=== PATIENT | female | born 1975 | race Caucasian/White ===

== ENCOUNTER 2019-10-13 07:26 | Day surgery (SDC) | payer BC ==
[2019-10-07 12:11] LABS: Urine Appearance CLEAR; Urine Bilirubin NEGATIVE (NEG); Urine Blood NEGATIVE (NEG); Urine Color YELLOW; Urine Glucose NEGATIVE (NEG); Urine Protein NEGATIVE (NEG); Urine Specific Gravity 1.015 (1.005-1.030); Urine Urobilinogen 0.2 mg/dL (0.2-1.0); Urine pH 6.5 (5.0-7.0)
--- NOTE | 2019-10-07 12:12 | EKG ---
Test Date: 2019-10-07 Test Time: 11:43:10 Project Management Professional: JENNIFER MEASUREMENT RESULTS: Intervals: Rate: 66 CO: 144 QRSD: 80 QT: 384 QTc: 402 [place]: P: 36 CO: 144 QRS: 24 T: 40 INTERPRETIVE STATEMENTS: Normal sinus rhythm Cannot rule out Anterior infarct, age undetermined Abnormal ECG Compared to ECG 08/03/2014 14:52:53 Myocardial infarct finding now present Electronically Signed On 10-07-19 12:12:11 [employer]IP[employer] by Shahazd Saldana
[2019-10-07 12:22] LABS: Urine Microscopic Reflex ORDER UMIC
[2019-10-07 12:25] LABS: Absolute Lymphocytes (CBC) 1.4 K/uL (0.7-4.9); Basophils % 1.1 % (0-1.3); Hematocrit 38.1 % (36.0-45.0); Lymphocytes % 27.3 % (15.3-44.8); MPV 10.1 fL (7.6-11.3); RBC Red Blood Cell Count 3.93 M/uL (3.86-4.86)
[2019-10-07 12:29] LABS: Urine Bacteria <20 /HPF (<20); Urine Culture Reflex Order REFLEXED
--- OUTSIDE RECORDS SUMMARY | 2019-10-13 07:31 | XMS REPORT ---
:1975 [facility] [address] [place] [address] Care Team Providers Name Role Phone Unavailable Unavailable Unavailable Payers Payer Name Policy Type Policy Number Effective Date Expiration Date Problems This patient has no known problems. Allergies, Adverse Reactions, Alerts Allergy Name Allergy Status Severity Reaction(s) Onset Inactive Treating Comments Type Date Date Clinician naproxen DA Active SV 2013-04 sodium - 00:00:0 0 sumatriptan DA Active SV 2013-04 succinate 00:00:0 0 diclofenac DA Active SV 2013-04 potassium 00:00:0 0 adhesive DA Active MS 2013-04 00:00:0 0 banana DA Active SV 2013-04 00:00:0 0 Medications This patient has no known medications. Results Test Description Test Time Test Comments Text Results Atomic Results Result Comments - CT CHEST W/CONTRAST 2019-04-19 12:43:00 Name: GENI MORGAN [facility] Nikhil : 1975 Age/S: 43 / F [address] Unit #: [id number] Loc: [place] [address] Phys: Federico Aponte MD Acct: [id number] Dis Date: Status: ADM IN PHONE #: [phone] Exam Date: 04/19/2019 1018 FAX #: Reason: to r/o PE EXAMS: CPT: [id number] CT CHEST W/CONTRAST [address]352 CT CHEST WITH CONTRAST, PE PROTOCOL: Location code: B2 CLINICAL HISTORY: Shortness of breath , chest pain COMPARISON: None TECHNIQUE: Following the administration of a timed IV contrast bolus, helical CT of the chest was performed. Thin section axial, coronal, and sagittal images were obtained. Oblique sagittal maximum intensity reformatted images of the pulmonary arteries were also obtained. Automatic exposure control was utilized. Total DLP: 351 mGycm FINDINGS: Contrast bolus timing is suboptimal with poor opacification of the pulmonary arteries. There is no definite large or central PE within the main pulmonary arteries. Evaluation is otherwise limited. The aorta is of normal caliber and contour. The lungs are clear. There is no consolidation or effusion. The central airways are patent. There is no mediastinal adenopathy or mass. There is no pericardial effusion. Images through the upper abdomen are unremarkable. The bones, skin and surrounding soft tissues are unremarkable. IMPRESSION: 1. Limited evaluation for PE secondary to poor contrast bolus timing. There is no definite large or central PE. Correlation with VQ scan or repeat CT can be performed, if there is persistent clinical concern. 2. No acute intrathoracic abnormality. at 1243 Reported and signed by: John Zhang M.D. PAGE 1 Signed Report (CONTINUED) Name: GENI MORGAN [facility] : 1975 Age/S: 43 / F [address] [facility] [address] Unit #: [id number] Loc: [place] [address] Phys: Federico Apnote MD Acct: [id number] Dis Date: Status: ADM IN PHONE #: [phone] Exam Date: 04/19/2019 1018 FAX #: Reason: to r/o PE EXAMS: CPT: [id number] CT CHEST W/CONTRAST 19400 <Continued> CC: Kareem Deleon MD; Federico Aponte MD; Mehdi Hardin MD Technologist:RT Kathryn(R) CTDI: DLP: Trnscb Date/Time: 04/19/2019 (0693) [email or web address] Orig Print D/T: S: 04/19/2019 (6933) PAGE 2 Signed Report D-DIMER 2019-04-19 11:13:00 Test Item Value Reference Range Comments D-DIMER (test code=DDIMER) <215 ng/mLFEU 215-500 GLYCOSYLATED HEMOGLOBIN [id number] 09:51:00 Test Item Value Reference Range Comments GLYCOSYLATED HEMOGLOBIN (HA1C) (test 4.9 % A1C 4.2-6.3 code=GLYHGB) ESTIMATED AVERAGE GLUCOSE (test code=EAG) 94 MG/DLest HCG [id number] 09:33:00 Test Item Value Reference Range Comments HCG SERUM (test code=HCG) < 1 mi-IU/ML 0-6 0 - 6 NOT > 6 SUGGESTIVE OF EARLY RISES TWO FOLD EVERY 2 DAYS; SUGGEST RECONFIRMING AFTER 2 DAYS. 150,000-200,[address] TRIMESTER 10,000 - 50,000 2ND & 3RD TRIMESTER COMPREHENSIVE METABOLIC [id number] 09:28:00 Test Item Value Reference Range Comments SODIUM (test code=NA) 139 mmol/L 134-147 POTASSIUM (test code=K) 4.1 mmol/L 3.4-5.0 CHLORIDE (test code=CL) 104 mmol/L 100-108 CARBON DIOXIDE (test code=CO2) 31 mmol/L 21-32 ANION GAP (test code=GAP) 4.0 GAP calc 4.0-15.0 GLUCOSE (test code=GLU) 82 MG/DL 70-110 BLOOD UREA NITROGEN (test code=BUN) 9 MG/DL 7-18 GLOMERULAR FILTRATION RATE (test >=60 max estimate estGFR >60 code=GFR) CREATININE (test code=CREAT) 0.8 MG/DL 0.6-1.0 TOTAL PROTEIN (test code=PROT) 6.7 G/DL 6.4-8.2 ALBUMIN (test code=ALB) 3.9 G/DL 3.4-5.0 GLOBULIN (test code=GLOB) 2.8 GM/dL ALBUMIN/GLOBULIN RATIO (test 1.4 RATIO 1.2-2.2 code=A/G) CALCIUM (test code=CA) 8.8 MG/DL 8.5-10.1 BILIRUBIN TOTAL (test code=BILT) 0.30 MG/DL 0.2-1.2 SGOT/AST (test code=AST) 19 Unit/L 15-37 SGPT/ALT (test code=ALT) 26 Unit/L 12-78 ALKALINE PHOSPHATASE TOTAL (test 59 Unit/L 45-117 code=ALKP) LIPID PROFILE (CORONARY RISK)2019-04-19 09:28:00 Test Item Value Reference Range Comments TRIGLYCERIDES (test code=TRIG) 89 MG/DL 0-150 CHOLESTEROL (test code=CHOL) 158 MG/DL 133-200 CHOLESTEROL/HDL RATIO (test code=CHOLHDL) 2.59 RATIO >0 HDL CHOLESTEROL (test code=HDL) 61 MG/DL 40-59 NON-HDL CHOLESTEROL (test code=NHDL) 97 mg/dL <130 LIPOPROTEIN LDL (test code=LDL) 91 MG/DL 0-129 LDL/HDL (test code=LDL/HDL) 1.49 Ratio 1.48-3.22 Avg [id number] 09:28:00 Test Item Value Reference Range Comments PHOSPHOROUS (test code=PHOS) 3.8 MG/DL 2.5-4.9 RULE OUT MS [id number] 09:28:00 Test Item Value Reference Range Comments CREATINE KINASE (CK) 80 Unit/L 26-192 (test code=CK) TROPONIN-I (test < 0.015 NG/ML 0.000-0.045 Negative: </=0.045 Positive: code=TROPI) >/=0.046 Correlation with serial results, other cardiac markers, and clinical findings is necessary to determine the clinical significance of this result. Quantitative results using different methodologies should not be compared to one another as numerical results may varyby method. [id number] 09:28:00 Test Item Value Reference Range Comments MAGNESIUM (test code=MAG) 1.9 MG/DL 1.8-2.4 PROTHROMBIN [id number] 09:15:00 Test Item Value Reference Range Comments PT PATIENT (test code=PTP) 11.5 SECONDS 9.3-12.9 INTERNATIONAL NORMAL RATIO (test code=INR) 1.00 INR Unit 0.8-1.2 CBC W/AUTO [id number] 09:07:00 Test Item Value Reference Range Comments WHITE BLOOD CELL (test code=WBC) 5.2 K/mm3 3.5-11.0 RED BLOOD CELL (test code=RBC) 4.15 M/mm3 4.70-6.10 HEMOGLOBIN (test code=HGB) 13.0 G/DL 10.4-14.9 HEMATOCRIT (test code=HCT) 39.4 % 31.5-44.1 MEAN CELL VOLUME (test code=MCV) 94.9 Fl 84.5-98.6 MEAN CELL HGB (test code=MCH) 31.3 pg 27.0-34.2 MEAN CELL HGB CONCETRATION (test code=MCHC) 33.0 G/DL 31.5-34.0 RED CELL DISTRIBUTION WIDTH (test code=RDW) 13.1 SD 11.5-14.5 PLATELET COUNT (test code=PLT) 201.0 K/mm3 150-450 MEAN PLATELET VOLUME (test code=MPV) 11.40 fL 7.0-10.5 NEUTROPHIL % (test code=NT%) 56.7 % 40-76 LYMPHOCYTE % (test code=LY%) 26.5 % 20.5-51.1 MONOCYTE % (test code=MO%) 10.6 % 1.7-9.3 EOSINOPHIL % (test code=EO%) 5.8 % 0.0-6.0 BASOPHIL % (test code=BA%) 0.4 % 0.0-2.0 NEUTROPHIL # (test code=NT#) 2.93 K/mm3 1.8-7.6 LYMPHOCYTE # (test code=LY#) 1.4 K/mm3 0.6-3.2 MONOCYTE # (test code=MO#) 0.6 K/mm3 0.3-1.1 EOSINOPHIL # (test code=EO#) 0.3 K/mm3 0.0-0.4 BASOPHIL # (test code=BA#) 0.0 K/mm3 0.0-0.1 MANUAL DIFF REQUIRED (test code=MDIFF) NO DIFF/SCN CRITERIA [id number] 03:59:00 Test Item Value Reference Range Comments TROPONIN-I (test < 0.015 NG/ML 0.000-0.045 Negative: </=0.045 Positive: code=TROPI) >/=0.046 Correlation with serial results, other cardiac markers, and clinical findings is necessary to determine the clinical significance of this result. Quantitative results using different methodologies should not be compared to one another as numerical results may varyby method. Completed by Nursing: [id number] 01:28:00 Test Item Value Reference Range Comments TROPONIN-I (test < 0.015 NG/ML 0.000-0.045 Negative: </=0.045 Positive: code=TROPI) >/=0.046 Correlation with serial results, other cardiac markers, and clinical findings is necessary to determine the clinical significance of this result. Quantitative results using different methodologies should not be compared to one another as numerical results may varyby method. Completed by Nursing: NO- MRI L-SPINE W/O [id number] 18:51:00 Patient Name: GENI MORGAN Unit No: [id number] EXAMS: CPT CODE: [id number] MRI L-SPINE W/O CONT 90651 MRI OF THE LUMBAR SPINE: DIAGNOSIS: 1. At L1-2, there is no disc bulge or herniation. No central canal or foraminal stenosis. 2. At L2-3, no disc bulge or herniation. No central canal or foraminal stenosis. 3. At L3-4, no disc bulge or herniation. No central canal or foraminal stenosis. 4. At L4-5, there is no disc bulge or herniation. Mild central canal stenosis. Mild to moderate bilateral facet arthropathy. Mild left foraminal stenosis. 5. At L5-S1, disc bulge or herniation. No central canal stenosis. Mild bilateral facet arthropathy. No foraminal stenosis COMMENT: COMPARISON: The current exam is compared to a previous exam dated February 20, 2011. Sagittal T1, T2 and STIR and axial T1 and T2-weighted sequences are obtained of the lumbar spine. The lumbar vertebrae are within normal limits in signal. The findings are as above. The conus is in the expected location. at 1851 Reported and signed by: Anali Isaac MD CC: Asha Redman MD Technologist: Kaelyn Kessler, RT(R) Transcribed D/ (1850) MartínezGVG [facility] NAME: GENI MORGAN [address] [facility] PHYS: Asha Belle MD : 1975 AGE: 43 SEX: F [place], [place] [address] LOC: Y.MRI PHONE #: [phone] EXAM DATE: 03/06/2019 STATUS: DEP CLI FAX #: [phone] RAD #: D/C DT PAGE 1 Signed Report Patient Name: MIHAELA MORGAN Unit No: [id number] EXAMS: CPT CODE: [id number] MRI L-SPINE W/O CONT 58720 <Continued> Orig Print D/T: S: 03/08/2019 (1855) [facility] NAME: GENI MORGAN [address] [facility] [address] PHYS: Asha Belle MD : 1975 AGE: 43 SEX: F [place], [place] [address] LOC: Y.MRI PHONE #: EXAM DATE: 03/06/2019 STATUS: JESSICA CLI FAX #: [phone] RAD #: D/C DT PAGE 2 Signed Report
[2019-10-13] MEDS ORDERED: SCOPOLAMINE HYDROBROMIDE PATCH TD ONE (07:42)
[2019-10-13] MEDS ORDERED: Ringers Lactate 1,000 ML IV ONE (07:42)
[2019-10-13] MEDS ORDERED: MIDAZOLAM HCL 2 MG/2 ML INJ ONE (07:58)
[2019-10-13] MEDS ORDERED: GLYCOPYRROLATE 0.2 MG/ML SYR ONE (07:58)
[2019-10-13] MEDS ORDERED: dexAMETHasone 10 MG/ML VIAL ONE (07:58)
[2019-10-13] MEDS ORDERED: LIDOCAINE 2% MPF 5 ML VIAL ONE (07:58)
[2019-10-13] MEDS ORDERED: FENTANYL CITR 250 MCG/5 ML ONE (07:58)
[2019-10-13] MEDS ORDERED: propofoL 200 MG/20 ML VIAL IV ONE (07:58)
[2019-10-13] MEDS ORDERED: ONDANSETRON 4 MG/2 ML VIAL ONE (07:59)
[2019-10-13] MEDS ORDERED: ROCURONIUM 50 MG/5 ML VIAL IV ONE (07:59)
[2019-10-13] MEDS ORDERED: BUPIVACAINE 0.25% PF 30 ML VIAL ONE (08:13)
[2019-10-13] MEDS ORDERED: KETOROLAC 30 MG/ML INJ ONE (09:42)
[2019-10-13] MEDS: HYDROMORPHONE HCL 1 MG/ML INJ ONE ×2 (10:35→10:40)
[2019-10-13] MEDS ORDERED: HYDROCODONE/APAP 5/325 MG TAB ONE (12:05)
[2019-10-13 13:27] VITALS: BP 107/71; TEMP 98.5; O2SAT 99
--- NOTE | 2019-10-13 20:02 | OP ---
Date of Procedure: 10/13/2019 Surgeon: Gabriela Isaac MD Preoperative Diagnoses: Menorrhagia (AUB: A/E); known history of endometriosis of the pelvic, perit oneum; pelvic pain. Postoperative Diagnoses: Menorrhagia (AUB: A/E); known history of endometriosis of the pelvic, griffin toneum; pelvic pain. Procedures Performed: 1.Hysteroscopy, dilatation and curettage. 2.Laparoscopy. 3.Bilateral salpingectomy. Anesthesia: General endotracheal. Specimens: Endometrial curettings. Bilateral tubes. Complications: No complications. Drains: No drains. Condition: Stable. Indications: Patient is a 44-year-old with pelvic pain and heavy menstrual bleeding. She had severe pain which was suspectful of endometritis and PID for which she was treated with antibiotics, still without any resolution of her pain. Patient with history of endometriosis and endometriosis excision 10 years ago, did well after that, but progressively pain has worsened. On examination, her adnexa right more tended on the left on the uterosacral, but no scar tissue was palpable. No adnexal masses were palpable. Transvaginal ultrasound was performed. No adnexal masses were found. Endometrium was slightly thick ened, but no intracavitary mass was suspected. She is status post tubal ligation and she is 44. She also has other comorbid conditions including rheumatoid arthritis, fibromyalgia. She had recent car diac workup that was negative. One vaginal delivery in the past. We discussed about options of conservative management with depot medroxyprogesterone or an IUD after endometrial sampling versus hysteroscopy, laparoscopy, endometriosis seem to be treated as well as bi lateral salpingectomy. If this failed, then it would warrant doing much more significant procedure l dominick a hysterectomy and once the patient was consented, she was explained all the alternatives to be p roceeded with the laparoscopy. She was brought to the hospital after re-consenting. Description Of Operation: In the preop, she was taken back to OR, placed in supine fashion. General anesthesia given, placed in a dorsal lithotomy position. Arms were tucked by the side. SCDs starte d. Time-out done. Pelvic exam, anteflexed uterus about 6-8 weeks, mobile. No adnexal masses were p alpable. Uterosacrals, no nodularity palpable and cul-de-sac free. Abdomen, vulva, vagina, and perineum prepped and draped in a sterile fashion. Richter was placed to dr alvarenga the bladder. Speculum was placed to expose the cervix. Anterior lip was grasped with 2 Allis cl amps. Diagnostic SlimLine hysteroscope was used to enter the cervical canal. Uterine cavity was ent ered. No intracavitary lesions were seen. Endometrial curettings were performed after the scope was removed and handed off for permanent pathology and a diagnostic uterine manipulator was introduced i nto the uterus and fixed in place. This area was then drained and the Richter was hooked up to the miroslava inage bag and this area was draped. A 1 cm infraumbilical incision was made after injecting Marcaine . Then, incision was opened up. Fascia was opened up with a knife, tagged with 0 Vicryl sutures. P eritoneum entered bluntly, S retractors placed. Osbaldo was introduced. Site of entry was checked an d was unremarkable. Upper abdominal surface was unremarkable as well. Patient was placed in Trendel enburg position and inspection of the pelvic cavity carefully was performed after placing the 5 supra pubic and left lower quadrant ports after Marcaine was injected in those respective sites as well. Both tubes had hydropic change. The right tube was adhered to the right pelvic sidewall. Evidence o f old endometriosis excision was present and pelvic peritoneum healed up very nicely. No endometrios is visible that could be excised including in the cul-de-sac. Slightly behind the left uterosacral, there was an area of scar, but no window was seen. Anteriorly, in the pelvic peritoneum, there appea red to be old endometriosis excision scar, but no new was seen. Carefully, after all the tubes and o varies were inspected in the broad ligament, deemed to remove the tubes. The proximal part of the le ft tube was not present, so distal part of the left tube taken down with the LigaSure. The proximal and distal parts of the right tube were taken down with the LigaSure, handed out for permanent pathol ogy, retrieved through the umbilical port using a 5 camera to the left. Ports were removed and were injected and trocar removed. Fascia closed with 0 Vicryl in a [id number]-hb-oyvyr fashion. All incision s were closed with interrupted 4-0 Vicryl sutures. The uterine manipulator and Richter were all remove d. Instrument, needle, and sponge counts were correct and patient tolerated the procedure well and e xtubated in the OR and taken to the PACU in stable condition. OSIRIS/VOLODYMYR Voice ID: [id number] Report ID: [id number]
== END 2019-10-13 12:55 | disposition home or self-care (01) ==
LOC: OR 07:26
PROVIDERS: ATTEND Obstetrics & Gynecology
PROC: 0UJD8ZZ Inspection of Uterus and Cervix, Via Natural or Artificial Opening Endoscopic (ICD-10-PCS; 2019-10-13)
PROC: 0UT74ZZ Resection of Bilateral Fallopian Tubes, Percutaneous Endoscopic Approach (ICD-10-PCS; 2019-10-13)
PROC: 0UDB7ZX Extraction of Endometrium, Via Natural or Artificial Opening, Diagnostic (ICD-10-PCS; principal; 2019-10-13 08:30)
DX: N92.1 Excessive and frequent menstruation with irregular cycle (principal); R10.2 Pelvic and perineal pain; N83.8 Other noninflammatory disorders of ovary, fallopian tube and broad ligament; M06.9 Rheumatoid arthritis, unspecified; M79.7 Fibromyalgia; K31.84 Gastroparesis; F32.9 Major depressive disorder, single episode, unspecified; E66.9 Obesity, unspecified; Z68.37 Body mass index [BMI] 37.0-37.9, adult; Z91.040 Latex allergy status; Z88.8 Allergy status to other drugs, medicaments and biological substances; Z90.49 Acquired absence of other specified parts of digestive tract; Z80.3 Family history of malignant neoplasm of breast; Z82.3 Family history of stroke
CPT/HCPCS: 93005; 87088; 85025; 87086; 36415; 86900; 86850; 81025; 86901; 88302; 88305; 58558; 58661; J2704; J2250; J3010; J1100; J1170; J7120; J2405; 81003; 81015

== ENCOUNTER 2020-03-15 08:50 | Day surgery (SDC) | payer BC ==
[2020-03-14 09:42] LABS: Urine Appearance CLEAR; Urine Bilirubin NEGATIVE (NEG); Urine Blood NEGATIVE (NEG); Urine Color YELLOW; Urine Glucose NEGATIVE (NEG); Urine Microscopic Reflex NO UMIC; Urine Protein NEGATIVE (NEG); Urine Specific Gravity <=1.005 (1.005-1.030); Urine Urobilinogen 0.2 mg/dL (0.2-1.0)
[2020-03-14 09:45] LABS: Absolute Lymphocytes (CBC) 1.3 K/uL (0.7-4.9); Basophils % 0.6 % (0-1.3); Hematocrit 38.9 % (36.0-45.0); Lymphocytes % 35.9 % (15.3-44.8); MPV 10.1 fL (7.6-11.3); RBC Red Blood Cell Count 4.01 M/uL (3.86-4.86)
--- OUTSIDE RECORDS SUMMARY | 2020-03-15 09:28 | XMS REPORT | Continuity of Care Document ---
:1975 Author Organization [facility] Information [place] Care Team Providers Name Role Phone [facility] [place] Unavailable Un available Problems Problem Status Onset Classification Date Comments Sourc e Date Reported SYMPTOMATIC Active [facility] BRADYCARDIA 6 Noah BRADYCARDIA, Active Memoria l UNSPECIFIED Noah Medications Medication Details Route Status Patient Ordering Order Source Instructions Provider Date Naproxen Notes: No Longer MH (Same as: Active 016 [place] Naprosyn) Take with food. D5W 1/2NS 1,000 1,000 mL, No Longer MH mL Rate: 75 Active 016 [place] ml/hr, Infuse over: 13.3 hr, Route: IV, Dosing Weight 89.545 kg, Total Volume: 1,000, Start date: 10/16/16 12:25:00 [employer], Duration: 30 day, Stop date: 11/15/16 12:24:00 [employer] Celebrex Notes: No Longer MH NSAID. Active 016 [place] Please check indication . Not for seizure. (Same As: CeleBREX) Lamictal Notes: No Longer MH (Same Active 016 [place] as:LaMICta l) Topamax Notes: No Longer MH (Same As: Active 016 [place] Topamax) "Do Not Crush" predniSONE 5 mg 100.4 F, Active MH oral tablet Give with 016 [place] food., # 7 tab, 0 Refill(s) celecoxib 200 200 mg = 1 Active MH MG Oral Capsule cap, PO, 016 [place] [Celebrex] Daily, # 30 cap, 0 Refill(s) Vitamin D3 PO, 0 Active MH Refill(s) 016 [place] topiramate 50 50 mg = 1 Active MH MG Oral Tablet tab, PO, 016 [place] [Topamax] Bedtime, # 60 tab, 0 Refill(s) Actemra 20 800, IV, Active mg/mL q4wk, 0 016 [place] intravenous Refill(s) solution lamotrigine 100 100 mg = 1 Active MG Oral Tablet tab, PO, 016 [place] [Lamictal] Daily, # 30 tab, 1 Refill(s) Fioricet PO, Q4H, 0 Active Refill(s) 016 [place] Trazodone 50 mg, PO, Active Bedtime, 0 016 [place] Refill(s) Methotrexate See Active Instructio 016 [place] ns, 7.5 mg qam and qpm only on saturdays, 0 Refill(s) Allergies, Adverse Reactions, Alerts Substance Category Reaction Severity Reaction Status Date Comments S ource type Reported [place] Assertion Drug Active MH allergy [place] Treximet Assertion Drug Active MH allergy [place] Immunizations No Data Provided for This Section Results Order Name Results Value Reference Date Interpretation Comments Seda rce Range CHEM PANEL eGFR 100 10/17 Result Comment: The [place] eGFR is calculated using the CKD-EPI formula. In most young, healthy individuals the eGFR will be >90 mL/min/1.73m2 . The eGFR declines with age. An eGFR of 60-89 may be normal in some populations, particularly the elderly, for whom the CKD-EPI formula has not been extensively validated. Use of the eGFR is not recommended in the following populations:< br/>
Kyung viduals with unstable creatinine concentration s, including patients and those with serious co-morbid conditions.<b r/>
Patie nts with extremes in muscle mass or diet.

The data above are obtained from the National Kidney Disease Education Program (NKDEP) which additionally recommends that when the eGFR is used in patients with extremes of body mass index for purposes of drug dosing, the eGFR should be multiplied by the estimated BMI. CHEM PANEL B/C Ratio 12 6 - 25 10/17 [place] CHEM PANEL Globulin 2.5 2.7 - 4.2 10/17 [place] CHEM PANEL A/G Ratio 1.6 0.7 - 1.6 10/17 [place] CHEM PANEL Calcium Lvl 8.0 8.5 - 10.5 10/17 [place] CHEM PANEL Potassium Lvl 4.3 3.5 - 5.1 10/17 [place] CHEM PANEL Chloride Lvl 110 95 - 109 10/17 [place] CHEM PANEL ASPARTATE 22 0 - 37 10/17 [place] CHEM PANEL AGAP 14.3 10.0 - 10/17 MH 20.0 /2016 [place] CHEM PANEL Total Protein 6.4 6.4 - 8.4 10/17 [place] CHEM PANEL Bili Total 0.6 0.2 - 1.3 10/17 [place] CHEM PANEL CO2 24 24 - 32 10/17 [place] CHEM PANEL Albumin Lvl 3.9 3.5 - 5.0 10/17 [place] CHEM PANEL ALANINE 39 0 - 65 10/17 [facility] CHEM PANEL BUN 9 7 - 22 10/17 [place] CHEM PANEL Creatinine Lvl 0.74 0.50 - 10/17 MH 1.40 [place] CHEM PANEL Alk Phos 63 39 - 136 10/17 [place] CHEM PANEL Glucose Lvl 114 70 - 99 10/17 [place] CHEM PANEL Sodium Lvl 144 135 - 145 10/17 [place] CHEM PANEL Phosphorus 2.9 2.5 - 4.5 10/16 [place] CHEM PANEL Magnesium Lvl 1.8 1.8 - 2.4 10/16 [place] CARDIAC Troponin-I <0.02 0.00 - 10/15 ENZYMES 0. [place] CHEM PANEL eGFR 94 10/15 [facility] Comment: The [place] eGFR is calculated using the CKD-EPI formula. In most young, healthy individuals the eGFR will be >90 mL/min/1.73m2 . The eGFR declines with age. An eGFR of 60-89 may be normal in some populations, particularly the elderly, for whom the CKD-EPI formula has not been extensively validated. Use of the eGFR is not recommended in the following populations:< br/>
Kyung viduals with unstable creatinine concentration s, including patients and those with serious co-morbid conditions.<b r/>
Patie nts with extremes in muscle mass or diet.

The data above are obtained from the National Kidney Disease Education Program (NKDEP) which additionally recommends that when the eGFR is used in patients with extremes of body mass index for purposes of drug dosing, the eGFR should be multiplied by the estimated BMI. CHEM PANEL Glucose Lvl 89 70 - 99 10/15 [place] CHEM PANEL Alk Phos 60 39 - 136 10/15 [place] CHEM PANEL Albumin Lvl 3.9 3.5 - 5.0 10/15 [place] CHEM PANEL ASPARTATE 17 0 - 37 12/ MH [place] CHEM PANEL Total Protein 6.7 6.4 - 8.4 10/15 [place] CHEM PANEL Bili Total 0.8 0.2 - 1.3 10/15 [place] CHEM PANEL Calcium Lvl 8.8 8.5 - 10.5 10/15 [place] CHEM PANEL CO2 30 24 - 32 10/15 [place] CHEM PANEL Chloride Lvl 110 95 - 109 10/15 [place] CHEM PANEL Creatinine Lvl 0.78 0.50 - 10/15 MH 1.40 /2015 [place] CHEM PANEL BUN 9 7 - 22 10/15 [place] CHEM PANEL ALANINE 30 0 - 65 10/15 [facility] CHEM PANEL Potassium Lvl 4.2 3.5 - 5.1 10/15 [place] CHEM PANEL Sodium Lvl 143 135 - 145 10/15 [place] CHEM PANEL A/G Ratio 1.4 0.7 - 1.6 10/15 [place] CHEM PANEL Globulin 2.8 2.7 - 4.2 10/15 [place] CHEM PANEL AGAP 7.2 10.0 - 12/ MH 20.0 [place] CHEM PANEL B/C Ratio 12 6 - 25 10/15 [place] HEMATOLOGY Monocytes # 0.4 0.0 - 0.8 10/15 [place] HEMATOLOGY Eosinophils 0.4 0.0 - 4.0 10/15 [place] HEMATOLOGY Basophils 0.6 0.0 - 1.0 10/15 [place] HEMATOLOGY Segs-Bands # 5.1 1.5 - 8.1 10/15 [place] HEMATOLOGY Lymphocytes # 1.5 1.0 - 5.5 10/152015 [place] HEMATOLOGY Segs 71.8 45.0 - 12/ MH 75.0 /2016 [place] HEMATOLOGY Monocytes 6.0 2.0 - 12.0 12/ /2015 [place] HEMATOLOGY Lymphocytes 21.2 20.0 - 12/ MH 40.0 /2015 [place] HEMATOLOGY MPV 9.8 7.4 - 10.4 12 /2015 [place] HEMATOLOGY Platelet 206 133 - 450 12/ /2015 [place] HEMATOLOGY MCHC 33.7 32.0 - 12/ MH 36.0 /2015 [place] HEMATOLOGY RDW 15.0 11.5 - 12/ MH 14. /2015 [place] HEMATOLOGY WBC X 10x3 7.1 3.7 - 10.4 12 /2015 [place] HEMATOLOGY MCH 32.1 27.0 - 12 MH 31.0 [place] HEMATOLOGY MCV 95.3 80.0 - 10/15 MH 98.0 /2015 [place] HEMATOLOGY Hct 36.6 36.0 - 10/15 MH 48.0 [place] HEMATOLOGY RBC X 10x6 3.84 4.20 - 10/15 MH 5.40 [place] HEMATOLOGY Hgb 12.3 12.0 - 10/15 MH 16.0 [place] Pathology Reports No Data Provided for This Section Diagnostic Reports No Data Provided for This Section Consultation Notes No Data Provided for This Section Discharge Summaries No Data Provided for This Section History and Physicals No Data Provided for This Section Vital Signs Vital Sign Value Date Comments Source Systolic (mm Hg) 131 10/17/2016 [facility] Diastolic (mm Hg) 85 10/17/2016 [place] Heart Rate 48 10/17/2016 [facility] Temperature Oral (F) 98 F 10/17/2016 [place] Respitory Rate 18 10/17/2016 [place] Respitory Rate 18 10/17/2016 [place] Systolic (mm Hg) 139 10/17/2016 [place] Diastolic (mm Hg) 90 10/17/2016 [place] Heart Rate 47 10/17/2016 [facility] Temperature Oral (F) 98.5 F 10/17/2016 [place] Systolic (mm Hg) 154 10/17/2016 [place] Diastolic (mm Hg) 95 10/17/2016 [place] Respitory Rate 18 10/17/2016 [facility] Heart Rate 48 10/17/2016 [facility] Temperature Oral (F) 98.2 F 10/17/2016 [facility] Weight 89.545 10/15/2016 [facility] BMI Calculated 32.85 10/15/2016 [facility] Height 165.1 cm 10/15/2016 [facility] Encounters Location Location Encounter Encounter Reason Attending ADM DC Stat us Source Details Type Number For Provider Date Date Visit [facility] [id number] Jenna 10/15 10/17 Gilead Ajao /2015 [facility] Procedures Procedure Code Date Perfomer Comments Source Appendectomy [id number] 11/04/2007 [facility] Cholecystectomy [id number] 11/04/2000 [facility] nd Tubal ligation [id number] 11/04/2000 [facility] d Carpal tunnel release [id number] [facility] Assessment and Plan Assessment and Plan Date Source Extracted from:Title: [facility] Cardiology Note 1 12/18/2015 [facility] Author: Joe Reid MD Date: 10/17/16 Impression and Plan The patient was seen and examined by me with the resident/COMMUNICATIONS PROJECT LEAD/PA and I agree with the History/Exam documented. 1. Sinus bradycardia 2. Rheumatoid arthritis 3. Bipolar disorder 4. Insomnia 5. Dizziness and lightheadedness RECOMMENDATIONS: - Evaluation so far has been unrevealing . Her medication do not appear to cause bradycardia however all can lead to dizziness and lightheadedness. - Tele with sinus bk only - Echocardiogram is normal - Exercise treadmill stress test showed normal chronotropic compentence. Plan for outpt event monitor and sleep study eval to rule ou t MOJGAN. Otherwise OK for d/c home from CV standpoint. Thank you. Extracted from:Title: General Admission H&P * Author: Bobby Felix MD Date: 10/15/16 Impression and Plan 1. symptomatic bradycardia 2. rheumatoid arthritis 3. bipolar 4. seizure disorder admit to telemetry will hold trazadone bernarda, monitor closely Dr Tatum cardiology following Echo orderd c/w lamictal, tpoamax venodynes while in bed Plan of Care No Data Provided for This Section Social History Social History Date Source Social History TypeResponse 10/15/2016 [facility] Smoking Status Never smoker; Ready to change: No; Expos ure to Tobacco Smoke None; Cigarette Smoking Last 365 Days No; Reg Smoking Cessation Counseling No Family History No Data Provided for This Section Advance Directives No Data Provided for This Section Functional Status No Data Provided for This Section
--- OUTSIDE RECORDS SUMMARY | 2020-03-15 09:30 | XMS REPORT | Summary of Care ---
:1975 Author Organization [facility] Address [address] [place] [address] Care Team Providers Name Role Phone Pcp, Does Not Have A Primary Care Provider Reason for Visit Reason Comments Follow-up 8mo Ekg Done today in Office Encounter Details Date Type Department Care Team Description 12/29/2019 Office Visit [facility] Rio Johnson M D Dizziness and Cardiology- [address] ([address]) Drive, [address] [place], [place] [phone] Allergies Active Allergy Reactions Severity Noted Date Comments Diclofenac Potassium Anaphylaxis 01/06/2015 Sumatriptan-Naproxen Anaphylaxis 01/06/2015 documented as of this encounter (statuses as of 01/10/2020) Medications Medication Sig Dispensed Refills Start End Date Status Date escitalopram oxalate Take 20 mg 0 Active (LEXAPRO) 20 mg tablet by mouth daily. traZODONE (DESYREL) 50 Take 50 mg 0 Active mg tablet by mouth at bedtime. lamoTRIgine (LAMICTAL) Take 100 mg 0 Active 100 mg tablet by mouth 2 (two) times daily. methotrexate Take 7.5 mg 0 Activ e (RHEUMATREX) 2.5 mg by mouth tablet weekly. predniSONE (DELTASONE) Take 5 mg 0 Active 5 mg tablet by mouth as needed. Omeprazole-Sodium Take by 0 Ac tive Bicarbonate (ZEGERID) mouth 2 40-1,680 mg Pack (two) times daily. venlafaxine XR (EFFEXOR Take 75 mg 0 Active XR) 75 mg 24 hr capsule by mouth daily with breakfast. meloxicam (MOBIC) 15 mg Take 15 mg 0 Active tablet by mouth daily. hydroxychloroquine Take 200 mg 0 Active (PLAQUENIL) 200 mg by mouth tablet daily. PNV Take by 0 Active [id number] mouth. A ORAL L-Methylfolate (DEPLIN) Take by 0 Discontinued 15 mg Tab mouth 20 (Therapy daily. completed) CHOLECALCIFEROL, Take by 0 12/29/19 Dis continued VITAMIN D3, (VITAMIN D3 mouth. 20 (Therapy ORAL) completed) topiramate (TOPAMAX) 25 Take 25 mg 0 12/29 Discontinued mg tablet by mouth at 20 (Therapy bedtime. completed) Etanercept (ENBREL inject 0 12/29/19 D iscontinued SURECLICK) 50 mg/mL under the 20 (Therapy (0.98 mL) PnIj skin compl eted) weekly. BUTALB/ACETAMINOPHEN/CA Take by 0 Discontinued FFEINE (FIORICET ORAL) mouth as 20 (Therapy needed. completed) LACTOBAC CMB Take by 0 12/29/19 Discont inued #3/FOS/PANTETHINE mouth 20 (T herapy (PROBIOTIC & daily. complet ed) ACIDOPHILUS ORAL) levothyroxine Take 1 30 Tab 2 12/29/19 Discon tinued (SYNTHROID) 50 mcg tablet, in 5 20 (Error) tablet the morning, on empty stomach, 1 hour before breakfast. documented as of this encounter (statuses as of 01/10/2020) Active Problems Not on filedocumented as of this encounter (statuses as of 01/10/2020) Social History Tobacco Use Types Packs/Day Years Used Date Never Smoker Smokeless Tobacco: Never Used Alcohol Use Drinks/Week oz/Week Comments Not Asked Sex Assigned at Date Recorded Not on file Job Start Date Occupation Industry Not on file Not on file Not on file Travel History Travel Start Travel End No recent travel history available. documented as of this encounter Last Filed Vital Signs Vital Sign Reading Time Taken Comments Blood Pressure 167/97 12/29/2019 2:16 PM [employer] Pulse 72 12/29/2019 2:16 PM [employer] Temperature - - Respiratory Rate 20 12/29/2019 2:06 PM [employer] Oxygen Saturation 100% 12/29/2019 2:06 PM [employer] Inhaled Oxygen Concentration - - Weight 94.2 kg (207 lb 11.2 oz) 12/29/2019 2:06 PM [employer] Height 162.6 cm (5' 4") 12/29/2019 2:06 PM [employer] Body Mass Index 35.65 12/29/2019 2:06 PM [employer] documented in this encounter Progress Notes Rio Johnson MD - 12/29/2019 2:00 PM CST [facility] Cardiology Consult Note CHIEF COMPLAINT: Chief Complaint Patient presents with Follow-up 8mo Ekg Done today in Office History of Present Illness: Dorinda Holley is a 44 years old female presents to clinic for evaluation for dizziness. History obtained talking to patient herself. For the past 1-2 Months, when getting up, she feels heart beating hard and fast, lasting 1 min, associated with LH, off balance, Nausea, etc. BP is normal. Drinks a lot of water. Lost 10 lbs. Mild headache and blurry vision. EKG--reviewed by me--12/29/2019--sinus rhythm HR 59 bpm, Non specific T wave abnormality Risk factors: autoimmune disorder, fibromyalgia, gastroparesis, esophageal dilatation. Outside records:- [facility] Tejeda cardio note reviewed. Seen by Dr Dolan Echo shows preserved LV EF. No valve issues. (04.18.2019) Recommended outpatient stress test. Previous Cardiac Studies: IMAGING - I personally reviewed, pertinent results as below: ECG Reviewed from outside; SR with narrow QRS complex. No sig ST T changes. PAST MEDICAL HISTORY Past Medical History: Diagnosis Date Fibromyalgia Rheumatoid arthritis(714.0) Seizure disorder Past Surgical History: Procedure Laterality Date FOOT/TOES SURGERY PROC UNLISTED Fractures twice Family History Problem Relation Age of Onset Other - see comments NoFHx She does not know bilogical realtives history well SOCIAL HISTORY Social History Socioeconomic History Marital status: Spouse name: Not on file Number of children: Not on file Years of education: Not on file Highest education level: Not on file Occupational History Not on file Social Needs Financial resource strain: Not on file Food insecurity: Worry: Not on file Inability: Not on file Transportation needs: Medical: Not on file Non-medical: Not on file Tobacco Use Smoking status: Never Smoker Smokeless tobacco: Never Used Substance and Sexual Activity Alcohol use: Not on file Drug use: Not on file Sexual activity: Not on file Lifestyle Physical activity: Days per week: Not on file Minutes per session: Not on file Stress: Not on file Relationships Social connections: Talks on phone: Not on file Gets together: Not on file Attends scientologist service: Not on file Active member of club or organization: Not on file Attends meetings of clubs or organizations: Not on file Relationship status: Not on file Intimate partner violence: Fear of current or ex partner: Not on file Emotionally abused: Not on file Physically abused: Not on file Forced sexual activity: Not on file Other Topics Concern Not on file Social History Narrative Not on file ALLERGIES Allergies Allergen Reactions [place] [Diclofenac Potassium] Anaphylaxis Treximet [Sumatriptan-Naproxen] Anaphylaxis MEDICATIONS Patient's Medications START taking these medications No medications on file CONTINUE taking these medications which have NOT CHANGED ESCITALOPRAM OXALATE (LEXAPRO) 20 MG TABLET Take 20 mg by mouth daily. HYDROXYCHLOROQUINE (PLAQUENIL) 200 MG TABLET Take 200 mg by mouth daily. LAMOTRIGINE (LAMICTAL) 100 MG TABLET Take 100 mg by mouth 2 (two) times daily. MELOXICAM (MOBIC) 15 MG TABLET Take 15 mg by mouth daily. METHOTREXATE (RHEUMATREX) 2.5 MG TABLET Take 7.5 mg by mouth weekly. OMEPRAZOLE-SODIUM BICARBONATE (ZEGERID) 40-1,680 MG PACK Take by mouth 2 (two) times daily. PNV [id number] ORAL Take by mouth. PREDNISONE (DELTASONE) 5 MG TABLET Take 5 mg by mouth as needed. TRAZODONE (DESYREL) 50 MG TABLET Take 50 mg by mouth at bedtime. VENLAFAXINE XR (EFFEXOR XR) 75 MG 24 HR CAPSULE Take 75 mg by mouth daily with breakfast. START taking Modified Medications as Prescribed No medications on file STOP taking these medications BUTALB/ACETAMINOPHEN/CAFFEINE (FIORICET ORAL) Take by mouth as needed. CHOLECALCIFEROL, VITAMIN D3, (VITAMIN D3 ORAL) Take by mouth. ETANERCEPT (ENBREL SURECLICK) 50 MG/ML (0.98 ML) PNIJ inject under the skin weekly. L-METHYLFOLATE (DEPLIN) 15 MG TAB Take by mouth daily. LACTOBAC CMB #3/FOS/PANTETHINE (PROBIOTIC & ACIDOPHILUS ORAL) Take by mouth daily. LEVOTHYROXINE (SYNTHROID) 50 MCG TABLET Take 1 tablet, in the morning, on empty stomach, 1 hour before breakfast. TOPIRAMATE (TOPAMAX) 25 MG TABLET Take 25 mg by mouth at bedtime. REVIEW OF SYSTEMS: Comprehensive 10-system review was conducted and were negative except for what's noted in the HPI. The following systems were reviewed: Constitutional, cardiovascular, respiratory, gastrointestinal, genitourinary, musculoskeletal, neurologic, psychiatric, endocrinological, and hematological. PHYSICAL EXAMINATION: Vitals: 12/29/19 1406 12/29/19 1416 BP: (!) 154/106 (!) 167/97 BP Location: Left arm Patient Position: Sitting BP CUFF SIZE: Adult Large Pulse: 77 72 Resp: 20 SpO2: 100% Weight: 207 lb 11.2 oz (94.2 kg) Height: 5' 4" (1.626 m) General: no apparent distress HEENT: normocephalic atraumatic Neck: supple, no lymphadenopathy, no bruits, no JVD Lungs: clear to auscultation bilaterally. No wheezes or rhonchi. No increased work of breathing. Cardio: Regular rate and rhythm, S1&S2 normal, no murmurs, rubs or gallops Abdomen: soft; non-tender; non-distended; normoactive bowel sounds. : not examined Rectal: not examined Extremities: no clubbing, cyanosis, or edema. Skin: no rashes, no visible lesions. Neuro: no gross focal deficits LABS - Reviewed pertinent labs as below: CBC BMP PT/INR No results found for: WBC No results found for: NA No results found for: PT No results found for: PLT No results found for: K No results found for: PTINR No results found for: HGB No results found for: BUN No results found for: HCT No results found for: CREAT LIPID PROFILE No results found for: GLU CHOL (MG/DL) Date Value 01/06/2015 184 TSH LDL CHOL (MG/DL) Date Value 01/06/2015 91 No results found for: TSH CARDIAC ENZYMES HDL CHOL (MG/DL) Date Value 01/06/2015 42 (L) No results found for: CK TRIG (MG/DL) Date Value 01/06/2015 255 (H) LFTs No results found for: CKMB No results found for: AST No results found for: TROPNI No results found for: ALT No results found for: BNP LDL CHOL (MG/DL) Date Value 01/06/2015 91 There are no current results on file for these tests and/or test for 1 year. There are no current results on file for these tests and/or test for 1 year. No recent labs to review ASSESSMENT/PLAN 1. Dizziness and giddiness EKG-12 LEAD ROUTINE Orthostatics today 155/102, 63 141/90, 67 135/86, 86 She has baseline hypertension with orthostasis. The treatment is a dilemma. By reviewing her medications, Effexor could be the culprit. Advised to discuss with psychiatry for alternatives. Her previousECHO and stress test were normal. Unlikely to have cardiac etiology. Follow up with [facility] Cardiology PRN Addendum---01/10/2020---Low cardiac risk for surgery. Rio Johnson MD, FACC, VIRIDIANAE Financial Business Analyst, Division of Cardiology [facility] documented in this encounter Plan of Treatment Name Type Priority Associated Diagnoses Order S chedule EKG-12 LEAD ROUTINE HEART STATION Routine Dizziness and Ordere d: 12/29/2019 giddiness Health Maintenance Due Date Last Done Comments DTaP,Tdap,and Td Vaccines (1 - 1985 Tdap) PAP SMEAR 1995 Breast Cancer Screening 2014 (MAMMOGRAM) INFLUENZA VACCINE (#1) 2019 PNEUMOCOCCAL 0-64 YEARS COMBINED Aged Out No longer eligible based on SERIES patient's age to complete this topic documented as of this encounter Procedures Procedure Name Priority Date/Time Associated Diagnosis Comme nts EKG-12 LEAD Routine 12/29/2019 2:13 PM [employer] documented in this encounter Results Not on filedocumented in this encounter Visit Diagnoses Diagnosis Dizziness and giddiness - Primary documented in this encounter Insurance Payer Benefit Plan Subscriber ID Effective Dates Phone Address Type / Group [facility] [id number] 2017-Remy [phone] [address] PPO/POS [place] - OUT OF t [id number] [place] [address] documented as of this encounter
--- OUTSIDE RECORDS SUMMARY | 2020-03-15 09:30 | XMS REPORT | Summary of Care ---
:1975 Author Organization [facility] Address [address] [place] [address] Care Team Providers Name Role Phone Pcp, Does Not Have A Primary Care Provider Reason for Visit Reason Comments Follow-up 8mo Ekg Done today in Office Encounter Details Date Type Department Care Team Description 12/29/2019 Office Visit [facility] Rio Johnson M D Dizziness and Cardiology- [address] ([address]) Drive, [address] [place], [place] [phone] Allergies Active Allergy Reactions Severity Noted Date Comments Diclofenac Potassium Anaphylaxis 01/06/2015 Sumatriptan-Naproxen Anaphylaxis 01/06/2015 documented as of this encounter (statuses as of 12/30/2019) Medications Medication Sig Dispensed Refills Start End [...] tablet daily. PNV Take by 0 Active 86-GKOF-DYQWHJHDQJZA-DH mouth. 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 Pulse 72 12/29/2019 2:16 PM WOOL HAT HYDRAULICKER Temperature - - Respiratory Rate 20 12/29/2019 2:06 PM WOOL HAT HYDRAULICKER Oxygen Saturation 100% 12/29/2019 2:06 PM WOOL HAT HYDRAULICKER Inhaled Oxygen Concentration - - Weight 94.2 kg (207 lb 11.2 oz) 12/29/2019 2:06 PM WOOL HAT HYDRAULICKER Height 162.6 cm (5' 4") 12/29/2019 2:06 PM WOOL HAT HYDRAULICKER Body Mass Index 35.65 12/29/2019 2:06 PM WOOL HAT HYDRAULICKER documented in this encounter Progress Notes Rio Johnson MD - 12/29/2019 2:00 PM CST [facility] Cardiology Consult Note CHIEF COMPLAINT: Chief [...] file Gets together: Not on file Attends hindu service: Not on file Active member of [...] by mouth 2 (two) times daily. PNV 08-KDQX-UGLEGXCUAKPY-DHA ORAL Take by mouth. PREDNISONE (DELTASONE) 5 [...] to have cardiac etiology. Follow up with [facility] Cardiology PRN Rio Johnson MD, FACCJENNA Air Traffic Systems Technician, Division of Cardiology [facility] documented in this encounter Plan of Treatment [...] this topic documented as of this encounter Results Not on filedocumented in this encounter Visit Diagnoses Diagnosis Dizziness and giddiness - Primary documented in this encounter Insurance Payer Benefit Plan Subscriber ID Effective Dates Phone Address Type / Group [facility] [id number] 2017-Remy [phone] [address] PPO/POS [place] - OUT OF t 7 [id number] [place] [address] documented as of this encounter
--- OUTSIDE RECORDS SUMMARY | 2020-03-15 09:30 | XMS REPORT | Summary of Care ---
:1975 Author Organization [facility] Address [address] [place] [address] Care Team Providers Name Role Phone Pcp, Does Not Have A Primary Care Provider Reason for Visit Reason Comments Follow-up 8mo Ekg Done today in Office Encounter Details Date Type Department Care Team Description 12/29/2019 Office Visit [facility] Rio Johnson M D Dizziness and Cardiology- [address] ([address]) Drive, [address] [place], [place] [phone] Allergies Active Allergy Reactions Severity Noted Date [...] tablet daily. PNV Take by 0 Active 45-JERL-HKWXRJHJTOEV-DH mouth. A ORAL L-Methylfolate (DEPLIN) Take by [...] Comments Blood Pressure 167/97 12/29/2019 2:16 PM SIGNAL WIRER Pulse 72 12/29/2019 2:16 PM SIGNAL WIRER Temperature - - Respiratory Rate 20 12/29/2019 2:06 PM SIGNAL WIRER Oxygen Saturation 100% 12/29/2019 2:06 PM SIGNAL WIRER Inhaled Oxygen Concentration - - Weight 94.2 kg (207 lb 11.2 oz) 12/29/2019 2:06 PM SIGNAL WIRER Height 162.6 cm (5' 4") 12/29/2019 2:06 PM SIGNAL WIRER Body Mass Index 35.65 12/29/2019 2:06 PM SIGNAL WIRER documented in this encounter Progress Notes Rio Johnosn MD - 12/29/2019 2:00 PM CST [facility] Cardiology Consult Note CHIEF COMPLAINT: [...] file Gets together: Not on file Attends christianity service: Not on file Active member of [...] by mouth 2 (two) times daily. PNV 78-VKSF-WQIUWBWUGPEV-DHA ORAL Take by mouth. PREDNISONE (DELTASONE) 5 [...] to have cardiac etiology. Follow up with [facility] Cardiology PRN Rio Johnson MD, FACCJENNA Sprayer Insecticide, Division of Cardiology [facility] documented in this encounter Plan [...] Effective Dates Phone Address Type / Group [facility] [id number] 2017-Remy [phone] [address] PPO/POS [place] - OUT OF t 7 [id number] [place] [address] documented as of this encounter
--- OUTSIDE RECORDS SUMMARY | 2020-03-15 09:30 | XMS REPORT | Summary of Care ---
:1975 Author Organization [facility] Address [address] [place] [address] Care Team Providers Name Role Phone Pcp, Does Not Have A Primary Care Provider Encounter Details Date Type Department Care Team Description 01/07/2020 Orders Only [facility] Doctor Unassigned, No [address] [facility] [place] [address] [address] [place] [address] Allergies Active Allergy Reactions Severity Noted Date Comments Diclofenac Potassium Anaphylaxis 01/06/2015 Sumatriptan-Naproxen Anaphylaxis 01/06/2015 documented as of this encounter (statuses as of 01/19/2020) Medications Medication Sig Dispensed Refills Start Date End Date Status escitalopram oxalate Take 20 mg by 0 Active (LEXAPRO) 20 mg tablet mouth daily. traZODONE (DESYREL) 50 mg Take 50 mg by 0 Active tablet mouth at bedtime. lamoTRIgine (LAMICTAL) 100 Take 100 mg 0 Active mg tablet by mouth 2 (two) times daily. methotrexate (RHEUMATREX) Take 7.5 mg 0 Active 2.5 mg tablet by mouth weekly. predniSONE (DELTASONE) 5 mg Take 5 mg by 0 Active tablet mouth as needed. Omeprazole-Sodium Take by 0 Ac tive Bicarbonate (ZEGERID) mouth 2 (two) 40-1,680 mg Pack times daily. venlafaxine XR (EFFEXOR XR) Take 75 mg by 0 Active 75 mg 24 hr capsule mouth daily with breakfast. meloxicam (MOBIC) 15 mg Take 15 mg by 0 Active tablet mouth daily. hydroxychloroquine Take 200 mg 0 Active (PLAQUENIL) 200 mg tablet by mouth daily. PNV Take by 0 Active 04-DTQQ-TLWCSHYTTZZN-DHA mouth. ORAL documented as of this encounter (statuses as of 01/19/2020) Active Problems Not on filedocumented as of this encounter (statuses as of 01/19/2020) Social History Tobacco Use Types Packs/Day Years [...] of this encounter Last Filed Vital Signs Not on filedocumented in this encounter Plan of Treatment Health Maintenance Due Date Last Done Comments DTaP,Tdap,and Td Vaccines ( - 1985 Tdap) PAP SMEAR 1995 Breast Cancer Screening 2014 (MAMMOGRAM) INFLUENZA VACCINE (#1) 2019 PNEUMOCOCCAL 0-64 YEARS COMBINED Aged Out No longer eligible based on SERIES patient's age to complete this topic documented as of this encounter Procedures Procedure Name Priority Date/Time Associated Diagnosis Comme nts MEDICAL Routine 01/07/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
--- OUTSIDE RECORDS SUMMARY | 2020-03-15 09:30 | XMS REPORT ---
:1975 Author Organization [facility] t Address [address] [place] [address] Care Team Providers Name Role Phone Unavailable Unavailable Unavailable Payers Payer Name Policy Type Policy Number Effective Date Expiration D ate Problems This patient has no known problems. Allergies, Adverse Reactions, Alerts Allergy Name Allergy Status Severity Reaction(s) Onset Inactive Treat ing Comments Type Date Date Clinician naproxen DA Active SV 2013-04 sodium - 00:00:0 0 sumatriptan DA Active SV 2013-04 succinate 00:00:0 0 diclofenac DA Active SV 2013-04 potassium 00:00:0 0 adhesive DA Active ID 2013-04 00:00:0 0 banana DA Active SV 2013-04 00:00:0 0 Medications This patient has no known medications. Results Test Description Test Time Test Comments Text Results Atomic Results Result Comments - CT CHEST W/CONTRAST 2019-04-19 12:43:00 [facility] 1975 Age/S: 43 / F [address] Unit #: [id number] Loc: [place] [address] Phys: Federico Aponte MD Acct: [id number] Dis Date: Status: ADM IN PHONE #: Exam Date: 04/19/2019 1018 FAX #: Reason: to r/o PE EXAMS: CPT: [id number] CT CHEST W/CONTRAS T [address] CT CHEST WITH CONTRAST, PE P ROTOCOL: Location code: B2 CLINICAL HISTORY: Shortness of breath , chest pain COM PARISON: None TECHNIQUE : Following the administration of a timed IV contrast bolus, hel ical CT of the chest was performed. Th in section axial, coronal, and sa gittal images were obtained. Obliq ue sagittal maximum intensity refo rmatted images of the pulmonary mauro keerthi were also obtained. Automa tic exposure control was utilize d. Total DLP: 351 mGycm FINDINGS: Contrast bolus timing is suboptimal with poor opacifi cation of the pulmonary arteries . There is no definite large or central PE within the main pulmonary mauro keerthi. Evaluation is otherwise limi carol. The aorta is of norm al caliber and contour. The lungs are clear. There is no cons olidation or effusion. The centr al airways are patent. Th ere is no mediastinal adenopathy or ma ss. There is no pericardial effu marina. Images through the upper abd omen are unremarkable. The bones, skin and surrounding soft ti ssues are unremarkable. IMPRESSION: 1. Limit ed evaluation for PE secondary to poor contrast bolus timing. There is no definite large or central PE. Correlation with VQ scan or repeat CT can be performed, if there is persistent clinical concern. 2. No acute intrathor acic abnormality. at 1243 Reported an d signed by: John Zhang M.D. PAGE 1 Sign ed Report (CONTINUED) Name: GENI MORGAN [facility] : 1975 Age/S: 43 / F [address] it #: [id number] Loc: [place] [address] Phys: Federico Aponte MD Acct: [id number] Dis Date: Status: ADM IN PHONE #: Exam Date: 04/19/2019 1019 FAX #: Reason: to r/o PE EXAMS: CPT: [id number] CT CHEST W/CONTRAS T [address]267 <Continued> CC: Kareem zambrano MD; Federico Aponte MD; Gabby Hardin MD Technologist:Jennifer Beck ers, RT(R) CTDI: DLP: Trnscb Date/Time: 04/19/2019 (4046) [email or web address] Orig P rint D/T: S: 04/19/2019 (5486) PAG E 2 Signed Report D-DIMER 2019-04-19 11:13:00 Test Item Value Reference Range Comments D-DIMER (test code = DDIMER) <215 ng/mLFEU 215-500 GLYCOSYLATED HEMOGLOBIN [id number] 09:51:00 Test Item Value Reference Range Comments GLYCOSYLATED HEMOGLOBIN (HA1C) (test code = 4.9 % A1C 4.2- 6.3 GLYHGB) ESTIMATED AVERAGE GLUCOSE (test code = EAG) 94 MG/DLest HCG [id number] 09:33:00 Test Item Value Reference Range Comments HCG SERUM (test code = < 1 mi-IU/ML 0-6 0 - 6 NOT HCG) > 6 SUGGESTIVE OF EA RLY RISES TWO FOLD EVERY 2 DAY S; SUGGEST R ECONFIRMING AFTER 2 DAYS. 150,000-[address] TRIMESTER 10,000 - 50,000 2ND & 3RD TRIMES [facility] COMPREHENSIVE METABOLIC [id number] 09:28:00 Test Item Value Reference Range Comments SODIUM (test code = NA) 139 mmol/L 134-147 POTASSIUM (test code = K) 4.1 mmol/L 3.4-5.0 CHLORIDE (test code = CL) 104 mmol/L 100-108 CARBON DIOXIDE (test code = CO2) 31 mmol/L 21-32 ANION GAP (test code = GAP) 4.0 GAP calc 4.0-15.0 GLUCOSE (test code = GLU) 82 MG/DL 70-110 BLOOD UREA NITROGEN (test code = 9 MG/DL 7-18 BUN) GLOMERULAR FILTRATION RATE (test >=60 max estimate estGFR >60 code = GFR) CREATININE (test code = CREAT) 0.8 MG/DL 0.6-1.0 TOTAL PROTEIN (test code = PROT) 6.7 G/DL 6.4-8.2 ALBUMIN (test code = ALB) 3.9 G/DL 3.4-5.0 GLOBULIN (test code = GLOB) 2.8 GM/dL ALBUMIN/GLOBULIN RATIO (test code = 1.4 RATIO 1.2-2.2 A/G) CALCIUM (test code = CA) 8.8 MG/DL 8.5-10.1 BILIRUBIN TOTAL (test code = BILT) 0.30 MG/DL 0.2-1.2 SGOT/AST (test code = AST) 19 Unit/L 15-37 SGPT/ALT (test code = ALT) 26 Unit/L 12-78 ALKALINE PHOSPHATASE TOTAL (test 59 Unit/L 45-117 code = ALKP) LIPID PROFILE (CORONARY RISK)2019-04-19 09:28:00 Test Item Value Reference Range Comments TRIGLYCERIDES (test code = TRIG) 89 MG/DL 0-150 CHOLESTEROL (test code = CHOL) 158 MG/DL 133-200 CHOLESTEROL/HDL RATIO (test code = CHOLHDL) 2.59 RATIO >0 HDL CHOLESTEROL (test code = HDL) 61 MG/DL 40-59 NON-HDL CHOLESTEROL (test code = NHDL) 97 mg/dL <130 LIPOPROTEIN LDL (test code = LDL) 91 MG/DL 0-129 LDL/HDL (test code = LDL/HDL) 1.49 Ratio 1.48-3.22 Avg [id number] 09:28:00 Test Item Value Reference Range Comments PHOSPHOROUS (test code = PHOS) 3.8 MG/DL 2.5-4.9 RULE OUT ID [id number] 09:28:00 Test Item Value Reference Range Comments CREATINE KINASE (CK) 80 Unit/L 26-192 (test code = CK) TROPONIN-I (test code = < 0.015 NG/ML 0.000-0.045 Negative : </= 0.045 Positive: TROPI) >/= 0.046 Correl ation with serial results, other cardiac markers, and cli nical findings is necessary to determine the clinical signif icance of this result. Quantita tive results using different methodologies should not be co mpared to one another as numer ical results may varyby metho d. [id number] 09:28:00 Test Item Value Reference Range Comments MAGNESIUM (test code = MAG) 1.9 MG/DL 1.8-2.4 PROTHROMBIN [id number] 09:15:00 Test Item Value Reference Range Comments PT PATIENT (test code = PTP) 11.5 SECONDS 9.3-12.9 INTERNATIONAL NORMAL RATIO (test code = INR) 1.00 INR Unit 0.8 -1.2 CBC W/AUTO [id number] 09:07:00 Test Item Value Reference Range Comments WHITE BLOOD CELL (test code = WBC) 5.2 K/mm3 3.5-11.0 RED BLOOD CELL (test code = RBC) 4.15 M/mm3 4.70-6.10 HEMOGLOBIN (test code = HGB) 13.0 G/DL 10.4-14.9 HEMATOCRIT (test code = HCT) 39.4 % 31.5-44.1 MEAN CELL VOLUME (test code = MCV) 94.9 Fl 84.5-98.6 MEAN CELL HGB (test code = MCH) 31.3 pg 27.0-34.2 MEAN CELL HGB CONCETRATION (test code = MCHC) 33.0 G/DL 31 .5-34.0 RED CELL DISTRIBUTION WIDTH (test code = RDW) 13.1 SD 11 .5-14.5 PLATELET COUNT (test code = PLT) 201.0 K/mm3 150-450 MEAN PLATELET VOLUME (test code = MPV) 11.40 fL 7.0-10.5 NEUTROPHIL % (test code = NT%) 56.7 % 40-76 LYMPHOCYTE % (test code = LY%) 26.5 % 20.5-51.1 MONOCYTE % (test code = MO%) 10.6 % 1.7-9.3 EOSINOPHIL % (test code = EO%) 5.8 % 0.0-6.0 BASOPHIL % (test code = BA%) 0.4 % 0.0-2.0 NEUTROPHIL # (test code = NT#) 2.93 K/mm3 1.8-7.6 LYMPHOCYTE # (test code = LY#) 1.4 K/mm3 0.6-3.2 MONOCYTE # (test code = MO#) 0.6 K/mm3 0.3-1.1 EOSINOPHIL # (test code = EO#) 0.3 K/mm3 0.0-0.4 BASOPHIL # (test code = BA#) 0.0 K/mm3 0.0-0.1 MANUAL DIFF REQUIRED (test code = MDIFF) NO DIFF/SCN CRITERI A [id number] 03:59:00 Test Item Value Reference Range Comments TROPONIN-I (test code = < 0.015 NG/ML 0.000-0.045 Negative : </= 0.045 Positive: TROPI) >/= 0.046 Correl ation with serial results, other cardiac markers, and cli nical findings is necessary to determine the clinical signif icance of this result. Quantita tive results using different methodologies should not be co mpared to one another as numer ical results may varyby method. Completed by Nursing: [id number] 01:28:00 Test Item Value Reference Range Comments TROPONIN-I (test code = < 0.015 NG/ML 0.000-0.045 Negative : </= 0.045 Positive: TROPI) >/= 0.046 Correl ation with serial results, other cardiac markers, and cli nical findings is necessary to determine the clinical signif icance of this result. Quantita tive results using different methodologies should not be co mpared to one another as numer ical results may varyby method. Completed by Nursing: NO- MRI L-SPINE W/O [id number] 18:51:00 Patient Name: GENI MORGAN Unit No: [id number] EXAMS: CPT CODE: [id number] MRI L-SPINE W/O CONT [id number] MRI OF THE LUMBAR SPINE: DIAGNOSIS: 1. [...] lumbar spine. The lumbar vertebrae are within n ormal limits in signal. The findings are as above. The conus is in the expected location. at 1851 Reported and signed by: Anali Isaac MD CC: Asha Redman MD Technologist: Kaelyn Kessler, RT(R) Transcribed D/ (1850) [facility] NAME: GENI MORGAN [address] [facility] PHYS: Asha Belle MD : 1975 AGE: 43 SEX: F [place] [address] LOC: Y.MRI PHONE #: [phone] EXAM DATE: 03/06/2019 STATUS: DEP CLI FAX #: [phone] RAD #: D/C DT PAGE 1 Signed Report Patient Name: MIHAELA MORGAN Unit No: [id number] EXAMS: CPT CODE: [id number] MRI L-SPINE W/O CONT [id number] <Continued> Orig Print D/T: S: 03/08/2019 (1854) [facility] NAME: GENI MORGAN [address] [facility] PHYS: Asha Belle MD : 1975 AGE: 43 SEX: F [place] [id number] LOC: Y.MRI PHONE #: [phone] EXAM DATE: 03/06/2019 STATUS: DEP CLI FAX #: [phone] RAD #: D/C DT PAGE 2 Signed Report
--- OUTSIDE RECORDS SUMMARY | 2020-03-15 09:30 | XMS REPORT | Summary of Care ---
:1975 Author Organization [facility] Address [address] [place] [address] Care Team Providers Name Role Phone Pcp, Does Not Have A Primary Care Provider Reason for Visit Reason Comments Forms Encounter Details Date Type Department Care Team Description 01/07/2020 Telephone [facility] Cardiology- Ange Khan MD Forms [address], [address] [place] [address] [place] [address] [phone] Allergies Active Allergy Reactions Severity Noted Date Comments Diclofenac Potassium Anaphylaxis 01/06/2015 Sumatriptan-Naproxen Anaphylaxis 01/06/2015 documented as of this encounter (statuses as of 01/11/2020) Medications Medication Sig Dispensed Refills Start Date [...] mouth daily. PNV Take by 0 Active 75-XOZQ-CRGQUXLNHSQW-DHA mouth. ORAL documented as of this encounter (statuses as of 01/11/2020) Active Problems Not on filedocumented as of this encounter (statuses as of 01/11/2020) Social History Tobacco Use Types Packs/Day Years [...] Type / Group [employer] [employer] [employer] [place] [id number] 2014-Presen [phone] [address] PPO/POS [place] t [id number] [place] [address] [place] [id number] 2017-Pres[place] [phone] [address] P[place] - OUT OF t 7 [id number] [place] [address] documented as of this encounter
[2020-03-15] MEDS ORDERED: SCOPOLAMINE HYDROBROMIDE PATCH TD ONE (09:40)
[2020-03-15] MEDS ORDERED: Ringers Lactate 1,000 ML IV ONE ×3 (09:41→12:33)
[2020-03-15] MEDS ORDERED: CEFAZOLIN/SWI 1gm 1 GM/10 ML SYR ONE (09:41)
[2020-03-15] MEDS ORDERED: CEFAZOLIN/SWI 2gm 2 GM/20 ML SYR ONE (09:41)
[2020-03-15] MEDS ORDERED: BUPIVACAINE 0.25% PF 30 ML VIAL ONE (09:49)
[2020-03-15] MEDS ORDERED: LIDOCAINE 1% MPF 5 ML VIAL ONE (10:03)
[2020-03-15] MEDS ORDERED: propofoL 200 MG/20 ML VIAL IV ONE (10:03)
[2020-03-15] MEDS ORDERED: dexAMETHasone 10 MG/ML VIAL ONE (10:04)
[2020-03-15] MEDS ORDERED: FENTANYL CITR 250 MCG/5 ML ONE (10:04)
[2020-03-15] MEDS ORDERED: MIDAZOLAM HCL 2 MG/2 ML INJ ONE (10:04)
[2020-03-15] MEDS ORDERED: ROCURONIUM 50 MG/5 ML VIAL IV ONE (10:04)
[2020-03-15] MEDS ORDERED: ONDANSETRON 4 MG/2 ML VIAL ONE ×2 (10:07→13:31)
[2020-03-15] MEDS ORDERED: EPHEDRINE SULF 50 MG/ML VIAL ONE (10:43)
[2020-03-15] MEDS ORDERED: GLYCOPYRROLATE 0.2 MG/ML SYR ONE (10:47)
[2020-03-15] MEDS ORDERED: KETOROLAC 30 MG/ML INJ ONE (12:28)
[2020-03-15] MEDS: HYDROMORPHONE HCL 1 MG/ML INJ ONE ×4 (13:30→13:50)
[2020-03-15] MEDS ORDERED: MEPERIDINE HCL 25 MG/0.5 ML ONE (13:32)
[2020-03-15 15:26] VITALS: BP 117/66; TEMP 98; O2SAT 99
[2020-03-15] MEDS ORDERED: HYDROCODONE/APAP 5/325 MG TAB ONE (15:35)
--- NOTE | 2020-03-15 22:31 | OP ---
Date of Procedure: 03/15/2020 Surgeon: Gabriela Isaac MD Preoperative Diagnoses: History of endometriosis, right lower quadrant pelvic pain, dysmenorrhea, dy spareunia, and abnormal uterine bleeding-endometriosis, adenomyosis. Postoperative Diagnoses: History of endometriosis, right lower quadrant pelvic pain, dysmenorrhea, d yspareunia, and abnormal uterine bleeding-endometriosis, adenomyosis. Procedures Performed: Total laparoscopic hysterectomy, right oophorectomy, and ablation of the endom etriosis on the left IP ligament. Anesthesia: General endotracheal. Specimens: Uterus and right ovary. Estimated Blood Loss: Minimal. Complications: No complications. Drains: No drains. Condition: The patient's condition is stable. Indications: Patient is a 44-year-old with abnormal bleeding and pain. She was evaluated with the l aparoscopy about 6 months ago and she was not better. Findings Of The Procedure: Uterus was enlarged and anteflexed. There was a small amount of endometr iosis on the left IP ligament and this was cauterized. I could not excise this as the left ovary was only one that was going to be left in place and intact, but it was completely ablated. Then, on the sidewall, careful inspection was performed and along the ureter or entire sidewall, just trace scar of prior endometriosis excision was seen, but no endometriosis that was visible was noted. Then the right ovary had a cyst on it that appeared to be benign, but plan was to remove the right ovary due t o the pain on that side. No other abnormalities were noted in the course of the ureters or other enrique nabila in the pelvic cavity. After the uterus was removed, the vaginal cuff was closed with 0 PDS x5, 2 simple sutures at the angl es and 3 [id number]. Description Of Procedure: After informed consent was verified, she was taken back to OR, placed in s upine fashion on the operating table. General anesthesia was given, placed in the dorsal lithotomy p osition. Pelvic exam performed. Uterus anteflexed about 6-8 week size. Abdomen, vulva, vagina, and perineum were prepped and draped in a sterile fashion. Richter was placed to drain the bladder. Latex-free Richter attached to cystotubing for retrograde filling. Speculum zoie luz elena to expose the cervix. Anterior lip grasped with an Allis clamp and a large VCare introduced into the uterus based on the size of the cervix. Once this was fixed in place, this area was draped. 1 cm infraumbilical incision was made with a scalpel using the open laparoscopy technique. Fascia wa s incised, tagged with 0 Vicryl sutures on both sides. Peritoneum was entered bluntly and S-retracto rs placed inside. Osbaldo introduced. Site of entry was checked, unremarkable. Upper abdominal surf aces were unremarkable. No evidence of any endometriosis. The patient was placed in T-nicholas, 5 mm le ft lower quadrant and 10 mm suprapubic incisions were made and trocars placed under direct vision. B oth the level of the fascia and skin where the incision was to be made, all these places and the 3 sp ots were injected with Marcaine. Once the trocars were placed and visualization of the entire pelvic cavity was conducted without any problems, the courses of the ureters were noted and the ureteric tu nnel within the distance from the uterine artery. Then anteriorly the bladder was free. The LigaSure was taken to take down the left round ligament. Then, the peritoneum was raised to crea te a bladder flap all the way to the opposite round ligament then posteriorly after finishing taking down the left round ligament, then posteriorly the peritoneum was opened up to the left uterosacral. On the opposite side, similar dissection was performed taking down the round ligament. Utero-ovaria n ligament was also taken down. Then posteriorly dissection was difficult to perform because I had g one down significantly with the LigaSure; anteriorly, it was connected for bladder flap. Bladder was dissected inferiorly to expose the VCare cup here. Monopolar was used to enter the vesicovaginal sp gisela and then this was dissected down. Medial incisions were made with the monopolar parallel to the vessels. Then bipolar basket tip was used for cauterization and the bipolar LigaSure used to vessel seal and cut. Cardinal ligaments were taken down as well on the opposite side vessels and cardinal l igaments were taken down without any problems, then circumferential colpotomy with a monopolar hook b lade. Specimen brought out through the vagina, the right ovary was picked up. The pedicle was taken down the infundibulopelvic ligament and once this was , the specimen was removed through th e vagina. On the left side, on the IP ligament, the endometriosis was cauterized without damaging th e vessels underneath to any significant level. Thorough irrigation and suction of the vaginal cuff was done and closure was performed with a 0 PDS 2 stitches at both angles and 3 [id number] in the middle. Excellent closure. No bleeding. Thor ough irrigation and suction performed again and gas was desufflated. Trocars were removed, injected at the sites entry and exit the skin and the fascia on those both sides, gas was desufflated through the umbilical trocar. Then, once this was removed, the fascia was injected with Marcaine 0.25%. The n the skin closed with the help of interrupted 4-0 Vicryl sutures in all 4 incisions deep, 0 Vicryl s titch placed at the suprapubic incision site as the depth of the fascia was very low. was very high. It was difficult to get down there and the incision was small enough. At the umbilical area, the fascia was closed with the help of 0 Vicryl tag sutures, tied to each other. The vaginal b ulb that was placed for pneumo-occlusion was removed. Richter was removed. The patient was recovered from anesthesia and taken to the PACU in stable condition. She will follow up with me in 1 week. Sh waqar will restart her methotrexate in 2 weeks and we will consider to restart her Actemra in 2-4 weeks. Plaquenil can be held just for now and possibly restart in a week. OSIRIS/VOLODYMYR Voice ID: [id number] Report ID: [id number]
== END 2020-03-15 16:35 | disposition home or self-care (01) ==
LOC: OR 08:50
PROVIDERS: ATTEND Obstetrics & Gynecology
PROC: 0UT04ZZ Resection of Right Ovary, Percutaneous Endoscopic Approach (ICD-10-PCS; 2020-03-15)
PROC: 0U544ZZ Destruction of Uterine Supporting Structure, Percutaneous Endoscopic Approach (ICD-10-PCS; 2020-03-15)
PROC: 0UT94ZZ Resection of Uterus, Percutaneous Endoscopic Approach (ICD-10-PCS; principal; 2020-03-15 10:00)
DX: N93.9 Abnormal uterine and vaginal bleeding, unspecified (principal); N94.6 Dysmenorrhea, unspecified; N94.10 Unspecified dyspareunia; N80.0 Endometriosis of uterus; N80.3 Endometriosis of pelvic peritoneum; N83.201 Unspecified ovarian cyst, right side; M79.7 Fibromyalgia; M06.9 Rheumatoid arthritis, unspecified; F32.9 Major depressive disorder, single episode, unspecified; R12 Heartburn; Z90.49 Acquired absence of other specified parts of digestive tract; Z88.8 Allergy status to other drugs, medicaments and biological substances; Z91.040 Latex allergy status; Z80.3 Family history of malignant neoplasm of breast; Z82.3 Family history of stroke
CPT/HCPCS: 85025; 36415; 86900; 86850; 81025; 86901; 88307; 81003; 58571; 58662; J2704; J2250; J3010; J1100; J2175; J1170 ×2; J0690 ×2; J7120 ×3; J2405 ×2; 88305